=== PATIENT | female | born 1950 | race Caucasian/White ===

== ENCOUNTER 2020-08-13 12:52 | Emergency (ER) | payer MEDICARE, OTHER ==
[~2020-08-13] VITALS: Ht 165.1 cm; Wt 77.3 kg
[~2020-08-13 12:52] MED LIST: ACET325T21 PO; CELE200C PO; CLOP75TA PO; CYAN1TAB19 PO; GABA-585 PO; LOPE2TAB27 PO; MAG-115 PO; MAGN24003 PO; MAGN400O7 PO; METH57CR17 TP; PANT20TA2 PO; POTA20TA4 PO; RIVA1PAT23 TP; SERT-267 PO; SIMV20TA18 PO; TRAM50TA PO; TRIA15OI TP
[2020-08-13] MEDS ORDERED: IV NORMAL SALINE 1000ML BAG 1,000 ML IV ONE (13:15)
[2020-08-13 13:29] LABS: BASO % 1 % (0-3); EOS # 0.1 x10^3/uL (0.0-0.7); EOS % 2 % (0-3); HEMATOCRIT 35.6 % (36.0-47.0); HEMOGLOBIN 11.9 g/dL (12.0-15.5); LYMPH % 17 % (24-48); MEAN CORPUSCULAR HEMOGLOBIN 30 pg (25-35); MEAN CORPUSCULAR HGB CONC 33 g/dL (31-37); MEAN CORPUSCULAR VOLUME 91 fL (79-100); MONO # 0.5 x10^3/uL (0.0-1.1); MONO % 8 % (0-9); NEUT # 4.1 x10^3/uL (1.8-7.7); NEUT % 72 % (31-73); PLATELET COUNT 230 x10^3/uL (140-400); RED CELL DISTRIBUTION WIDTH 14.2 % (11.5-14.5); WHITE BLOOD COUNT 5.7 x10^3/uL (4.0-11.0)
[2020-08-13 13:35] LABS: PROTHROMBIN TIME PATIENT 13.5 SEC (11.7-14.0)
[2020-08-13 13:37] LABS: CALCIUM 8.7 mg/dL (8.5-10.1); GFR 54.8; POTASSIUM 4.2 mmol/L (3.5-5.1)
--- NOTE | 2020-08-13 13:44 | RAD ---
AP chest. HISTORY: Altered mental status, weakness, AP view was taken of the chest. There is a moderate to large hiatus hernia. There are no acute infilt rates. There is no effusion. IMPRESSION: 1. Hiatus hernia. 2. No acute infiltrates. Electronically signed by: Simón Urena MD (08/13/2020 1:39 PM) [facility]
[2020-08-13 13:51] LABS: ALBUMIN 3.3 g/dL (3.4-5.0); ALBUMIN/GLOBULIN RATIO 1.1 (1.0-1.7); MAGNESIUM 2.2 mg/dL (1.8-2.4); TOTAL BILIRUBIN 0.3 mg/dL (0.2-1.0); TOTAL PROTEIN 6.3 g/dL (6.4-8.2)
[2020-08-13 13:53] LABS: CREATINE KINASE 108 U/L (26-192)
--- NOTE | 2020-08-13 14:13 | PHYS DOC ---
Past Medical History Past Medical History: Anxiety, Arthritis, Asthma, Cancer, Dementia, Depression, GERD Past Medical History Limited secondary to dementia Past Surgical History: No Surgical History Past Surgical History Limited secondary to dementia Smoking Status: Never Smoker Alcohol Use: None Drug Use: None Social History Limited secondary to dementia General Adult EDM: Chief Complaint: HEADACHE HPI: HPI: 69-year-old female with past medical history of dementia presents from residential facility with report of low blood pressure readings. Patient also had reportedly been complaining of some headaches. Patient denies any recent trauma. Denies any fever or chills. Denies pain. Patient currently does not report complaint upon arrival. History of present illness limited secondary to dementia. Review of Systems: Review of Systems: Constitutional: Denies fever Respiratory: Denies cough or shortness of breath GI: Denies nausea or vomiting Integument: Denies rash or skin lesions Neurologic: Reports headache; denies change in mentation Review of systems limited secondary to dementia Current Medications: Current Medications Medications (Trade) Dose Ordered Sig/Levi Start Time Stop Time Status Last Admin Dose Admin Sodium Chloride 1,000 ml @ 1,000 mls/hr 1X ONCE 08/13/20 13:15 08/13/20 14:14 08/13/20 13:35 1,000 MLS/HR Allergies: Allergies: Allergies Coded Allergies Type Severity Reaction Last Updated Verified Iodine and Iodide Containing Produc Allergy Intermediate 05/06/20 Yes aspirin Allergy Intermediate 05/06/20 Yes doxycycline Allergy Intermediate 05/06/20 Yes morphine Allergy Intermediate 05/06/20 Yes Physical Exam: PE: Constitutional: Well developed, well nourished, no acute distress, non-toxic appearance HENT: Normocephalic, atraumatic Eyes: PERRL, EOMI, conjunctiva normal, no discharge Neck: Normal range of motion, no tenderness, supple Lungs & Thorax: No respiratory distress, equal chest rise and fall Abdomen: Soft, no tenderness Skin: Warm, dry, no erythema, no rash Extremities: No tenderness, ROM intact, no edema Neurologic: Alert and oriented X name and place, normal motor function, normal sensory function, no focal deficits noted Psychologic: Affect normal, judgment abnormal Current Patient Data: Labs: Laboratory Tests Test 08/13/20 13:00 White Blood Count 5.7 x10^3/uL (4.0-11.0) Red Blood Count 3.90 x10^6/uL (3.50-5.40) Hemoglobin 11.9 g/dL (12.0-15.5) L Hematocrit 35.6 % (36.0-47.0) L Mean Corpuscular Volume 91 fL (79-100) Mean Corpuscular Hemoglobin 30 pg (25-35) Mean Corpuscular Hemoglobin Concent 33 g/dL (31-37) Red Cell Distribution Width 14.2 % (11.5-14.5) Platelet Count 230 x10^3/uL (140-400) Neutrophils (%) (Auto) 72 % (31-73) Lymphocytes (%) (Auto) 17 % (24-48) L Monocytes (%) (Auto) 8 % (0-9) Eosinophils (%) (Auto) 2 % (0-3) Basophils (%) (Auto) 1 % (0-3) Neutrophils # (Auto) 4.1 x10^3/uL (1.8-7.7) Lymphocytes # (Auto) 1.0 x10^3/uL (1.0-4.8) Monocytes # (Auto) 0.5 x10^3/uL (0.0-1.1) Eosinophils # (Auto) 0.1 x10^3/uL (0.0-0.7) Basophils # (Auto) 0.0 x10^3/uL (0.0-0.2) Prothrombin Time 13.5 SEC (11.7-14.0) Prothrombin Time INR 1.1 (0.8-1.1) Activated Partial Thromboplast Time 35 SEC (24-38) Sodium Level 143 mmol/L (136-145) Potassium Level 4.2 mmol/L (3.5-5.1) Chloride Level 108 mmol/L (98-107) H Carbon Dioxide Level 26 mmol/L (21-32) Anion Gap 9 (6-14) Blood Urea Nitrogen 19 mg/dL (7-20) Creatinine 1.0 mg/dL (0.6-1.0) Estimated GFR (Cockcroft-Gault) 54.8 BUN/Creatinine Ratio 19 (6-20) Glucose Level 119 mg/dL (70-99) H Lactic Acid Level 1.1 mmol/L (0.4-2.0) Calcium Level 8.7 mg/dL (8.5-10.1) Magnesium Level 2.2 mg/dL (1.8-2.4) Total Bilirubin 0.3 mg/dL (0.2-1.0) Aspartate Amino Transferase (AST) 17 U/L (15-37) Alanine Aminotransferase (ALT) 22 U/L (14-59) Alkaline Phosphatase 98 U/L (46-116) Ammonia 15 mcmol/L (11-34) Creatine Kinase 108 U/L (26-192) Creatine Kinase MB (Mass) < 0.5 ng/mL (0.0-3.6) Creatine Kinase MB Relative Index % (0-4) Troponin I Quantitative < 0.017 ng/mL (0.000-0.055) CJ-Jzu-[id number]-Type Natriuretic Peptide 184 pg/mL (0-124) H Total Protein 6.3 g/dL (6.4-8.2) L Albumin 3.3 g/dL (3.4-5.0) L Albumin/Globulin Ratio 1.1 (1.0-1.7) Laboratory Tests 08/13/20 13:00 Laboratory Tests 08/13/20 13:00 Vital Signs: Vital Signs Date Time Temp Pulse Resp B/P (MAP) Pulse Ox O2 Delivery O2 Flow Rate FiO2 08/13/20 13:10 98.2 51 18 94/46 (62) 96 Room Air 98.2 EKG: EKG: @1300 Sinus bradycardia at 51bpm, NO ST elevation, QRS 80ms, QT/QTc 494/457ms, t wave inversion III and aVF Radiology/Procedures: Radiology/Procedures: PROCEDURE: PORTABLE CHEST 1V AP chest. HISTORY: Altered mental status, weakness, AP view was taken of the chest. There is a moderate to large hiatus hernia. There are no acute infiltrates. There is no effusion. IMPRESSION: 1. Hiatus hernia. 2. No acute infiltrates. Electronically signed by: Simón Urena MD (08/13/2020 1:39 PM) [facility] PROCEDURE: CT HEAD AND CERVICAL SPINE WO CT scan of the head without contrast 08/13/2020 Clinical History: Fall with head injury. Confusion. Technique: Unenhanced, contiguous, 5 mm axial sections were obtained through the head. One or more of the following individualized dose reduction techniques were utilized for this study: 1. Automated exposure control. 2. Adjustment of the mA and/or kV according to patient size. 3. Use of iterative reconstruction technique. Findings: Comparison study is dated 05/06/2020 . There is generalized parenchymal atrophy. Areas of decreased attenuation are seen within the periventricular and subcortical white matter of both cerebral hemispheres consistent with areas of small vessel ischemic disease. No acute parenchymal abnormality is seen. No extra-axial fluid collection is noted. No skull fracture is seen. Impression: No acute intracranial abnormality is seen. CT scan of the cervical spine without contrast 08/13/2020 Clinical history: Fall with neck injury. Technique: Unenhanced, contiguous, 0.625 mm axial sections were obtained through the cervical spine. Axial, coronal and sagittal reconstructed images were obtained. One or more of the following individualized dose reduction techniques were utilized for this study: 1. Automated exposure control. 2. Adjustment of the mA and/or kV according to patient size. 3. Use of iterative reconstruction technique. Findings: Sagittal and coronal reconstructed images demonstrate straightening of the normal cervical lordosis. Degenerative changes consisting of varying degrees of disc space narrowing, vertebral endplate sclerosis and minimal to mild anterior and posterior vertebral body osteophyte formation are seen involving the C4-5, C5-6 and C6-7 discs. No fracture or subluxation of the cervical vertebrae is seen. Impression: No fracture or subluxation of the cervical vertebra is identified. Electronically signed by: Sravan Bates MD (08/13/2020 3:05 PM) [id number] Course & Med Decision Making: Course & Med Decision Making Pertinent Labs and Imaging studies reviewed. (See chart for details) Patient presents from long-term with report of headache and low blood pressure readings. Patient is confused at baseline. Patient appears to be at her normal mentation. No signs of trauma appreciated. No focal deficits noted. Labs obtained and posted to chart. EKG stable. CT head without acute finding. Chest x-ray clear. Blood pressure appears stable. Patient stable for discharge with outpatient follow-up with PCP. Discussed findings and plan with patient, who acknowledges understanding and agreement. Johanny Disclaimer: Johanny Disclaimer: This electronic medical record was generated, in whole or in part, using a voice recognition dictation system. Departure Departure Impression: Primary Impression: Headache Qualified Codes: R51.9 - Headache, unspecified Additional Impression: Hypotension Qualified Codes: I95.9 - Hypotension, unspecified Disposition: 01 DC HOME SELF CARE/HOMELESS (back to long-term) Condition: IMPROVED Referrals: CHRISSY MERCADO MD (PCP) Patient Instructions: Headache, FAQs, Hypotension, [facility] Additional Instructions: Blood pressure improved and stabilized upon arrival to ED. IV fluid hydration given. Encourage increased oral fluid hydration. SMOOTH HENDRICKSON DO Aug 13, 2020 14:13
--- NOTE | 2020-08-13 15:11 | RAD ---
CT scan of the head without contrast 08/13/2020 Clinical History: Fall with head injury. Confusion. Technique: Unenhanced, contiguous, 5 mm axial sections were obtained through the head. One or more of the following individualized dose reduction techniques were utilized for this study: 1. Automated exposure control. 2. Adjustment of the mA and/or kV according to patient size. 3. Use of iterative reconstruction technique. Findings: Comparison study is dated 05/06/2020 . There is generalized parenchymal atrophy. Areas of decreased attenuation are seen within the perivent ricular and subcortical white matter of both cerebral hemispheres consistent with areas of small vess el ischemic disease. No acute parenchymal abnormality is seen. No extra-axial fluid collection is not ed. No skull fracture is seen. Impression: No acute intracranial abnormality is seen. CT scan of the cervical spine without contrast 08/13/2020 Clinical history: Fall with neck injury. Technique: Unenhanced, contiguous, 0.625 mm axial sections were obtained through the cervical spine. Axial, coronal and sagittal reconstructed images were obtained. One or more of the following individualized dose reduction techniques were utilized for this study: 1. Automated exposure control. 2. Adjustment of the mA and/or kV according to patient size. 3. Use of iterative reconstruction technique. Findings: Sagittal and coronal reconstructed images demonstrate straightening of the normal cervical lordosis. Degenerative changes consisting of varying degrees of disc space narrowing, vertebral endpl ate sclerosis and minimal to mild anterior and posterior vertebral body osteophyte formation are seen involving the C4-5, C5-6 and C6-7 discs. No fracture or subluxation of the cervical vertebrae is seen. Impression: No fracture or subluxation of the cervical vertebra is identified. Electronically signed by: Sravan Bates MD (08/13/2020 3:05 PM) [facility]
[2020-08-13 15:24] LABS: BILIRUBIN,URINE SMALL (NEG); CLARITY,URINE CLOUDY; COLOR,URINE YELLOW; NITRITE,URINE NEGATIVE (NEG); PH,URINE 6.5 (<5.0-8.0); PROTEIN,URINE NEGATIVE (NEG-TRACE)
[2020-08-13 15:35] LABS: BACTERIA,URINE MODERATE /HPF (0-FEW); HYALINE CASTS, URINE MANY /HPF; RBC,URINE OCC /HPF (0-2)
[2020-08-13 15:40] LABS: BARBITURATES NEG (NEG); BENZODIAZEPINES NEG (NEG); CANNABINOIDS NEG (NEG); COCAINE NEG (NEG); METHADONE NEG (NEG); OPIATES NEG (NEG); PHENCYCLIDINE NEG (NEG)
[2020-08-13 15:43] LABS: AMPHETAMINE/METHAMPHETAMINE NEG (NEG)
[2020-08-13 17:48] VITALS: BP 117/65
--- NOTE | 2020-08-14 03:53 | EKG ---
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
== END 2020-08-13 17:50 | disposition home or self-care (01) ==
LOC: ER 12:52
DX: I95.9 Hypotension, unspecified (principal); R51.9 Headache, unspecified; F41.9 Anxiety disorder, unspecified; M19.90 Unspecified osteoarthritis, unspecified site; J45.909 Unspecified asthma, uncomplicated; K21.9 Gastro-esophageal reflux disease without esophagitis; F32.9 Major depressive disorder, single episode, unspecified; F03.90 Unspecified dementia, unspecified severity, without behavioral disturbance, psychotic disturbance, mood disturbance, and anxiety; Z88.6 Allergy status to analgesic agent; Z88.1 Allergy status to other antibiotic agents; Z91.041 Radiographic dye allergy status
CPT/HCPCS: 36415; 70450; 71045; 72125; 80053; 80307; 81001; 82140; 82553; 83605; 83735; 83880; 84484; 85025; 85610; 85730; 87040; 87086; 93005; 96360; 96361; 99285; J7030; 87077; 87186

== ENCOUNTER 2020-11-22 12:59 | Emergency (ER) | payer MEDICARE, OTHER ==
[~2020-11-22] VITALS: Ht 165.1 cm; Wt 86.0 kg
[2020-11-22 13:21] VITALS: BP 144/63
--- NOTE | 2020-11-22 14:55 | PHYS DOC ---
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 Patient has a large hematoma to the forehead with a superficial 1mm cut to the bridge of the nose. alf staff states that she is not on blood thinners and she t here was no LOC. Patient has had a CVA in the past and has dysphagia and this is normal for her. Patient is denying dizziness, nausea, vomiting, chest pain, shortness of air, vision changes, numbness or tingling, focal weakness. She states she does have some head pain where she hit her head. Due to her dementia she is unable to rate her pain but states it is "slightly there." (KHURRAM CM CASTING OPERATOR HELPER) Review of Systems: Review of Systems: Constitutional: Denies fever or chills. [] Eyes: Denies change in visual acuity. [] HENT: Denies nasal congestion or sore throat. [] Respiratory: Denies cough or shortness of breath. [] Cardiovascular: Denies chest pain or edema. [] GI: Denies abdominal pain, nausea, vomiting, bloody stools or diarrhea. [] : Denies dysuria. [] Musculoskeletal: Denies back pain or joint pain. + Neck pain [] Integument: Denies rash.+ Superficial cut to bridge of nose [] Neurologic: + headache, focal weakness or sensory changes. [] Endocrine: Denies polyuria or polydipsia. [] Lymphatic: Denies swollen glands. [] Psychiatric: Denies depression or anxiety. [] (KHURRAM CM CASTING OPERATOR HELPER) Heart Score: C/O Chest Pain: No Risk Factors: Risk Factors: DM, Current or recent (<one month) smoker, HTN, HLP, family history of CAD, obesity. Risk Scores: Score 0 - 3: 2.5% MACE over next 6 weeks - Discharge Home Score 4 - 6: 20.3% MACE over next 6 weeks - Admit for Clinical Observation Score 7 - 10: 72.7% MACE over next 6 weeks - Early Invasive Strategies (KHURRMA CM APRN) Allergies: Allergies: Allergies Coded Allergies Type Severity Reaction Last Updated Verified Iodine and Iodide Containing Produc Allergy Intermediate 05/06/20 Yes aspirin Allergy Intermediate 05/06/20 Yes doxycycline Allergy Intermediate 05/06/20 Yes morphine Allergy Intermediate 05/06/20 Yes (KHURRAM CM APRN) Physical Exam: PE: Constitutional: Well developed, well nourished, no acute distress, non-toxic appearance. [] HENT: Normocephalic, atraumatic, bilateral external ears normal, oropharynx moist, no oral exudates, nose normal. [] Eyes: PERRLA, EOMI, conjunctiva normal, no discharge. [] Neck: Normal range of motion, cervical tenderness, supple, no stridor. [] Cardiovascular:Heart rate regular rhythm, no murmur [] Lungs & Thorax: Bilateral breath sounds clear to auscultation [] Abdomen: Bowel sounds normal, soft, no tenderness, no masses, no pulsatile masses. [] Skin: Warm, dry, no erythema, no rash. Superficial cut to bridge of nose [] Back: No tenderness, no CVA tenderness. [] Extremities: No tenderness, no cyanosis, no clubbing, ROM intact, no edema. [] Neurologic: Alert and oriented X 3, normal motor function, normal sensory function, no focal deficits noted. [] Psychologic: Affect normal, judgement normal, mood normal. [] (KHURRAM CM APRN) Current Patient Data: Vital Signs: Vital Signs Date Time Temp Pulse Resp B/P (MAP) Pulse Ox O2 Delivery O2 Flow Rate FiO2 11/22/20 13:21 98.1 72 12 144/63 (90) 98 Room Air 98.1 (KHURRAM CM APRN) EKG: EKG: [] (KHURRAM CM APRN) Radiology/Procedures: Radiology/Procedures: [] Impression: [facility] [address] [place] [address] IMAGING REPORT Signed PATIENT: GHAZAL LIM ACCOUNT: [id number] : 1950 LOCATION: ER AGE: 70 SEX: F EXAM STATUS: REG ER ORD. PHYSICIAN: KHURRAM CM APRN REASON: FALL, HEMATOMA TO FOREHEAD PROCEDURE: CT HEAD AND CERVICAL SPINE WO EXAM: CT HEAD WITHOUT IV CONTRAST CLINICAL HISTORY: Reason: FALL, HEMATOMA TO FOREHEAD / Spl. Instructions: / History: COMPARISON: None. TECHNIQUE: Routine CT of the head without contrast. Soft tissues and bone windows were reviewed. PQRS compliance statement - One or more of the following individualized dose reduction techniques were utilized for this study: 1. Automated exposure control 2. Adjustment of the mA and/or kV according to patient size 3. Use of iterative reconstruction technique FINDINGS: There is no evidence of hemorrhage, mass or extra-axial fluid collection. Curiel-white differentiation is maintained with no evidence of edema. Subcortical, periventricular as well as deep white matter foci of hypoattenuation likely changes of chronic small vessel disease. There is no mass effect or shift of the intracranial structures. The ventricles, basilar cisterns and cortical sulci are normal in size and configuration for the patients stated age. The cerebellum and brainstem are unremarkable. The calvarium demonstrates no evidence of fracture or focal lesion. There is normal aeration of the visualized paranasal sinuses and mastoid air cells. The visualized portions of the orbits are normal. Atherosclerotic calcifications of the intracranial internal carotid and vertebral arteries is seen. Soft tissue swelling overlying the forehead. IMPRESSION: 1. No evidence for acute intracranial process. 2. White matter changes, likely chronic small vessel disease. 3. Atherosclerotic calcifications of the intracranial internal carotid and vertebral arteries is seen. 4. Subcutaneous hematoma overlying the frontal region/forehead. EXAM: CT CERVICAL SPINE WITHOUT IV CONTRAST CLINICAL HISTORY: Reason: FALL, HEMATOMA TO FOREHEAD / Spl. Instructions: / History: COMPARISON: None available. TECHNIQUE: Helical CT of the cervical spine was performed. Axial, coronal and sagittal reformatted images were also performed. PQRS compliance statement - One or more of the following individualized dose reduction techniques were utilized for this study: 1. Automated exposure control 2. Adjustment of the mA and/or kV according to patient size 3. Use of iterative reconstruction technique FINDINGS: Vertebral body heights are preserved. Mild C3-4, C4-5 and moderate C4-5, C5-6 disc height loss. Small endplate osteophytes are seen posteriorly at C4-5, C5-6 and C6-7 with disc osteophyte complexes. No spondylolisthesis. IMPRESSION: 1. Multilevel spondylosis as above 2. Negative acute fracture or subluxation. EXAM: CT facial bones without contrast CLINICAL HISTORY: Reason: FALL, HEMATOMA TO FOREHEAD / Spl. Instructions: / History: COMPARISON: None available. TECHNIQUE: Helical CT of the face/paranasal sinuses was acquired and axial, coronal and sagittal reformatted images were generated. ---PQRS compliance statement - One or more of the following individualized dose reduction techniques were utilized for this study: 1. Automated exposure control 2. Adjustment of the mA and/or kV according to patient size 3. Use of iterative reconstruction technique--- FINDINGS: There is a minimally depressed nasal bone fracture with moderate associated soft tissue swelling. Vascular calcifications are seen. Soft tissue swelling overlying the forehead/frontal region. Bilateral TMJ degenerative changes are seen. The visualized paranasal sinuses are well-aerated. No evidence of air-fluid levels. The mastoids are unremarkable. The globes, extraocular muscles, optic nerves and retrobulbar fat are normal. Visualized upper aerodigestive tract is normal. IMPRESSION: 1. Soft tissue swelling/scalp hematoma overlying the frontal region/forehead. 2. Minimally depressed nasal bone fracture. Electronically signed by: Christoph Whitley MD (11/22/2020 3:23 PM) [facility] DICTATED and SIGNED BY: CHRISTOPH WHITLEY MD DATE: 11/22/20 [id number] (KHURRAM CM APRN) Course & Med Decision Making: Course & Med Decision Making Pertinent Labs and Imaging studies reviewed. (See chart for details) See HPI. Alert and oriented x2. Has some dysphagia but speaking normal for her. Skin pink warm and dry. Egg sized hematoma to forehead. Superficial cut to bridge of nose. Up-to-date on vaccinations. PERRLA. Tenderness over the hematoma area into the bridge of her nose. Focal bony spinal tenderness to the cervical spine. Patient is moving all extremities equally. No extremity or joint deformity, swelling or bruising. Patient is in a c-collar. Full range of motion of her neck. [] (KHURRAM CM APRN) Dragon Disclaimer: Dragon Disclaimer: This electronic medical record was generated, in whole or in part, using a voice recognition dictation system. (KHURRAM CM APRN) Departure Departure Impression: Primary Impression: Nasal bone fracture Qualified Codes: S02.2XXA - Fracture of nasal bones, initial encounter for closed fracture Additional Impressions: Scalp hematoma Qualified Codes: S00.03XA - Contusion of scalp, initial encounter Fall Qualified Codes: W19.XXXA - Unspecified fall, initial encounter Disposition: HOME / SELF CARE / HOMELESS Condition: STABLE Referrals: CHRISSY MERCADO MD (PCP) LIS KILPATRICK MD Patient Instructions: Fall Prevention and Home Safety, Nasal Fracture, Scalp Hematoma Additional Instructions: Follow-up with an ears nose throat doctor or the primary care physician for your nasal bone fracture. Take antibiotic as prescribed and with food. Drink plenty of fluids. If you begin having a severe headache, vomiting or altered mental status return to the emergency room. Scripts Amoxicillin (AMOXICILLIN) 500 Mg Capsule 1 CAP PO BID, #20 CAP Prov: KHURRAM CM APRN 11/22/20 KHURRAM CM APRN Nov 22, 2020 14:54 SURJIT PAVON DO Nov 23, 2020 13:17
--- NOTE | 2020-11-22 15:25 | RAD ---
EXAM: CT HEAD WITHOUT IV CONTRAST CLINICAL HISTORY: Reason: FALL, HEMATOMA TO FOREHEAD / Spl. Instructions: / History: COMPARISON: None. TECHNIQUE: Routine CT of the head without contrast. Soft tissues and bone windows were reviewed. PQRS compliance statement - One or more of the following individualized dose reduction techniques wer e utilized for this study: 1. Automated exposure control 2. Adjustment of the mA and/or kV according to patient size 3. Use of iterative reconstruction technique FINDINGS: There is no evidence of hemorrhage, mass or extra-axial fluid collection. Curiel-white differentiation is maintained with no evidence of edema. Subcortical, periventricular as w ell as deep white matter foci of hypoattenuation likely changes of chronic small vessel disease. There is no mass effect or shift of the intracranial structures. The ventricles, basilar cisterns and cortical sulci are normal in size and configuration for the alise ents stated age. The cerebellum and brainstem are unremarkable. The calvarium demonstrates no evidence of fracture or focal lesion. There is normal aeration of the visualized paranasal sinuses and mastoid air cells. The visualized portions of the orbits are normal. Atherosclerotic calcifications of the intracranial internal carotid and vertebral arteries is seen. S oft tissue swelling overlying the forehead. IMPRESSION: 1. No evidence for acute intracranial process. 2. White matter changes, likely chronic small vessel disease. 3. Atherosclerotic calcifications of the intracranial internal carotid and vertebral arteries is see n. 4. Subcutaneous hematoma overlying the frontal region/forehead. EXAM: CT CERVICAL SPINE WITHOUT IV CONTRAST CLINICAL HISTORY: Reason: FALL, HEMATOMA TO FOREHEAD / Spl. Instructions: / History: COMPARISON: None available. TECHNIQUE: Helical CT of the cervical spine was performed. Axial, coronal and sagittal reformatted im ages were also performed. PQRS compliance statement - One or more of the following individualized dose reduction techniques wer e utilized for this study: 1. Automated exposure control 2. Adjustment of the mA and/or kV according to patient size 3. Use of iterative reconstruction technique FINDINGS: Vertebral body heights are preserved. Mild C3-4, C4-5 and moderate C4-5, C5-6 disc height loss. Small endplate osteophytes are seen posteriorly at C4-5, C5-6 and C6-7 with disc osteophyte complexes. No spondylolisthesis. IMPRESSION: 1. Multilevel spondylosis as above 2. Negative acute fracture or subluxation. EXAM: CT facial bones without contrast CLINICAL HISTORY: Reason: FALL, HEMATOMA TO FOREHEAD / Spl. Instructions: / History: COMPARISON: None available. TECHNIQUE: Helical CT of the face/paranasal sinuses was acquired and axial, coronal and sagittal refo rmatted images were generated. ---PQRS compliance statement - One or more of the following individualized dose reduction techniques were utilized for this study: 1. Automated exposure control 2. Adjustment of the mA and/or kV according to patient size 3. Use of iterative reconstruction technique--- FINDINGS: There is a minimally depressed nasal bone fracture with moderate associated soft tissue swelling. Vas cular calcifications are seen. Soft tissue swelling overlying the forehead/frontal region. Bilateral TMJ degenerative changes are seen. The visualized paranasal sinuses are well-aerated. No evidence of air-fluid levels. The mastoids are unremarkable. The globes, extraocular muscles, optic nerves and retrobulbar fat are normal. Visualized upper aerodigestive tract is normal. IMPRESSION: 1. Soft tissue swelling/scalp hematoma overlying the frontal region/forehead. 2. Minimally depressed nasal bone fracture. Electronically signed by: Christoph Suarez MD (11/22/2020 3:23 PM) [email or web address]
[2020-11-22 15:26] LABS: BILIRUBIN,URINE NEGATIVE (NEG); CLARITY,URINE CLEAR; COLOR,URINE YELLOW; NITRITE,URINE NEGATIVE (NEG); PROTEIN,URINE NEGATIVE (NEG-TRACE); UROBILINOGEN,URINE 0.2 mg/dL (0.2 mg/dL)
[2020-11-22 15:37] LABS: BACTERIA,URINE 0 /HPF (0-FEW); RBC,URINE 0 /HPF (0-2); WBC,URINE 0 /HPF (0-4)
[2020-11-22] MEDS ORDERED: AMOX500C PO (15:38)
== END 2020-11-22 17:23 | disposition home or self-care (01) ==
LOC: ER 12:59
DX: S02.2XXA Fracture of nasal bones, initial encounter for closed fracture (principal); S00.03XA Contusion of scalp, initial encounter; J45.909 Unspecified asthma, uncomplicated; K21.9 Gastro-esophageal reflux disease without esophagitis; F03.90 Unspecified dementia, unspecified severity, without behavioral disturbance, psychotic disturbance, mood disturbance, and anxiety; Z88.1 Allergy status to other antibiotic agents; Z88.5 Allergy status to narcotic agent; Z88.6 Allergy status to analgesic agent; W18.09XA Striking against other object with subsequent fall, initial encounter; Y93.89 Activity, other specified; Y92.89 Other specified places as the place of occurrence of the external cause; Y99.8 Other external cause status
CPT/HCPCS: 70450; 70486; 72125; 81001; 99285-25